=== PATIENT | male | born 1975 | race African-American/Black ===

== ENCOUNTER 2018-03-20 03:12 | Emergency (ER) | payer OTHER ==
--- NOTE | 2018-03-20 03:16 | PDOC ---
History of Present Illness - General Stated Complaint: HEADACHE Time Seen by Provider: 03/20/18 03:16 - History of Present Illness Initial Comments: 03/20/18 03:28 Mr. Luna is a 42 yo male w/ pmh of cluster headaches who presents for evaluation of right sided retro-orbital throbbing headache for the last hour. Patient reports he had taken some advil for the pain however he vomited one time ; pain returned and he called EMS. Patient reports his pain improved when he was put on oxygen by the fire department. Patient reports he still has some pain however it is much improved from earlier today. The patient denies chest pain, shortness of breath, and dizziness. Denies fever , chills, diarrhea and constipation. Denies dysuria, frequency, urgency and hematuria. Past History - Past Medical History Allergies/Adverse Reactions: Allergies Allergy/AdvReac Type Severity Reaction Status Date / Time No Known Allergies Allergy Verified 03/20/18 03:18 Home Medications: Ambulatory Orders Ibuprofen [Motrin -] 600 mg PO TID PRN #21 tablet 02/05/16 Metoclopramide HCl [Reglan] 10 mg PO BID PRN #6 tablet 02/05/16 Ondansetron [Zofran Odt -] 4 mg SL TID PRN #9 od.tablet 03/20/18 - Immunization History Immunization Up to Date: Yes - Suicide/Smoking/Psychosocial Hx Smoking History: Never smoked Have you smoked in the past 12 months: No Hx Alcohol Use: No Drug/Substance Use Hx: No Substance Use Type: None Review of Systems - Review of Systems Comments:: 03/20/18 03:32 GENERAL/CONSTITUTIONAL: No fever or chills. No weakness. HEAD, EYES, EARS, NOSE AND THROAT: No change in vision. No ear pain or discharge. No sore throat. CARDIOVASCULAR: No chest pain or shortness of breath RESPIRATORY: No cough, wheezing, or hemoptysis. GASTROINTESTINAL: +Single episode of vomiting. No diarrhea or constipation. GENITOURINARY: No dysuria, frequency, or change in urination. MUSCULOSKELETAL: No joint or muscle swelling or pain. No neck or back pain. SKIN: No rash NEUROLOGIC: +Headache as described. No vertigo, loss of consciousness, or change in strength/sensation. ENDOCRINE: No increased thirst. No abnormal weight change HEMATOLOGIC/LYMPHATIC: No anemia, easy bleeding, or history of blood clots. ALLERGIC/IMMUNOLOGIC: No hives or skin allergy. *Physical Exam - Physical Exam Comments: 03/20/18 03:32 GENERAL: Awake, alert, and fully oriented, in no acute distress HEAD: No signs of trauma, normocephalic, atraumatic EYES: PERRLA, EOMI, sclera anicteric, conjunctiva clear ENT: Auricles normal inspection, hearing grossly normal, nares patent, oropharynx clear without exudates. Moist mucosa NECK: Normal ROM, supple, no lymphadenopathy, JVD, or masses LUNGS: No distress, speaks full sentences, clear to auscultation bilaterally HEART: Regular rate and rhythm, normal S1 and S2, no murmurs, rubs or gallops, peripheral pulses normal and equal bilaterally. ABDOMEN: Soft, nontender, normoactive bowel sounds. No guarding, no rebound. No masses EXTREMITIES: Normal inspection, Normal range of motion, no edema. No clubbing or cyanosis. NEUROLOGICAL: Cranial nerves II through XII grossly intact. Normal speech, normal gait, no focal sensorimotor deficits SKIN: Warm, Dry, normal turgor, no rashes or lesions noted. ED Treatment Course - LABORATORY CBC & Chemistry Diagram: 03/20/18 04:00 03/20/18 04:00 Medical Decision Making - Medical Decision Making 03/20/18 03:32 Mr. Luna is a 42 yo male w/ pmh as described who presents for evaluation of symptoms c/w cluster headache. Patient improved following previous oxygen administration. Patient placed back on 2L NC and given single reglan dose PO. 03/20/18 03:59 Upon repeat interview patient endorsed taking 12 tylenol pills yesterday. Acetaminophen, salicylate, CBC/CMP taken for further evaluation of patient to ensure no acute process. 03/20/18 04:43 EKG regular rate, regular rhythm, normal access, normal intervals, no ST elevations or depressions. Occasional PVC's noted, otherwise grossly normal EKG. 03/20/18 05:08 Patient reporting relief from symptoms. No concern on labs. Educated patient on proper OTC medication dosing techniques and discussed taking only recommended amounts on packaging. Patient verbalized understanding and will comply going forward. Discharging to home w/ instructions to f/u w/ PCP for further evaluation. *DC/Admit/Observation/Transfer Diagnosis at time of Disposition: Cluster headache Qualifiers: Headache chronicity pattern: unspecified pattern Intractability: not intractable Qualified Code(s): G44.009 - Cluster headache syndrome, unspecified , not intractable - Discharge Dispostion Disposition: HOME - Referrals Referrals: Dylan Cortez MD [Staff Physician] - - Patient Instructions Printed Discharge Instructions: DI for Cluster Headache Additional Instructions: You were evaluated today in the emergency room for your headache. No concerning findings were found at this time. We have provided neurology follow-up information for further evaluation of your migraine headaches as well as sent an anti-nausea medication to your pharmacy. Take all medications as written. Follow-up with Neurology later this week for further evaluation. Return to ER if any return of headache, fever, chills, or other concerning symptoms. - Post Discharge Activity
[2018-03-20 03:20] VITALS: TEMP 97.3; BMI 26.8
[2018-03-20] MEDS ORDERED: METOCLOPRAMIDE HCL 10 MG TABLET (FP) PO ONE ×2 (03:27→03:31)
[2018-03-20] MEDS ORDERED: ONDANSETRON 4 MG TABLET PO ONE (03:27)
[2018-03-20] MEDS ORDERED: ONDANSETRON 8 MG TABLET (FP) PO ONE (03:31)
--- NOTE | 2018-03-20 04:01 | PDOC ---
Attending Attestation - Resident Resident Name: Nain Kay - ED Attending Attestation I have performed the following: I have examined & evaluated the patient, The case was reviewed & discussed with the resident, I agree w/resident's findings & plan, Exceptions are as noted - HPI HPI: 03/20/18 03:59 42M pmh of cluster BARNETT here with 2 days of sharp, R sided barnett a/w ipsilateral lacrimation. Pt was taking ES tylenol on day 1 of symptoms, taking a total of 12 500mg pills in 3 doses over 24h. Pt states symptoms resolved. Today BARNETT recurred, he took advil but vomited after taking the initial dose, symptoms persisted. He called EMS, symptoms improved markedly when he was started on supplemental O2. No other active complaints. - Physicial Exam PE: 03/20/18 04:02 GENERAL: Well-appearing, well-nourished. No apparent distress. HEENT: Normocephalic, atraumatic. PERRL, EOM intact. CARDIOVASCULAR: Normal S1, S2. Regular rate and rhythm. PULMONARY: Clear to auscultation bilaterally. ABDOMEN: Soft, non-distended, non-tender. EXTREMITIES: Normal ROM in all four extremities. No gross deformities. SKIN: Warm, dry. No rash NEUROLOGICAL: No focal neurological deficits. - Medical Decision Making 03/20/18 04:03 Presentation consistent with cluster BARNETT, no eye px or conj injection, no focality Concerning amount of tylenol taken approx 24h ago f/u levels, labs 03/20/18 06:04 normal levels, NAC not indicated, BARNETT symptoms resolved safe for dc
[2018-03-20 04:08] LABS: BASO % 0.9 % (0-2.0); EOS % 1.8 % (0-4.5); HEMATOCRIT 38.3 % (35.4-49); HEMOGLOBIN 13.4 GM/dL (11.7-16.9); LYMPH % 23.8 % (8-40); MCH 29.5 pg (25.7-33.7); MEAN CELL VOLUME 84.4 fl (80-96); MEAN PLT VOLUME 10.2 fl (7.5-11.1); MONO % 6.5 % (3.8-10.2); PLATELET COUNT 195 K/MM3 (134-434); RBC 4.54 M/mm3 (4.00-5.60); RDW 13.1 % (11.9-15.9); WHITE BLOOD COUNT 8.4 K/mm3 (4.0-10.0)
[2018-03-20 04:47] LABS: ALK PHOS 86 U/L (45-117); ANION GAP 7 MMOL/L (8-16); BILIRUBIN,TOTAL 0.4 mg/dL (0.2-1); BLOOD UREA NITROGEN 11 mg/dL (7-18); CALCIUM 8.6 mg/dL (8.5-10.1); CHLORIDE 107 mmol/L (98-107); CO2 26 mmol/L (21-32); CREATININE 1.2 mg/dL (0.55-1.3); GLUCOSE,RANDOM 95 mg/dL (74-106); POTASSIUM 3.2 mmol/L (3.5-5.1); SGOT/AST 30 U/L (15-37); SGPT/ALT 22 U/L (13-61); SODIUM 140 mmol/L (136-145)
[2018-03-20 05:12] VITALS: BP 147/92; PULSE 70
--- NOTE | 2018-03-20 10:27 | EKG ---
Test Reason : Blood Pressure : / mmHG Vent. Rate : 068 BPM Atrial Rate : 068 BPM P-R Int : 164 ms QRS Dur : 088 ms QT Int : 364 ms P-R-T Axes : 069 055 056 degrees QTc Int : 387 ms SINUS RHYTHM WITH OCCASIONAL PREMATURE VENTRICULAR COMPLEXES OTHERWISE NORMAL ECG WHEN COMPARED WITH ECG OF 25-JAN-2016 14:51, NONSPECIFIC T WAVE ABNORMALITY NO LONGER EVIDENT IN INFERIOR LEADS Confirmed by KATEY CALDERON, SHARDA ([id number]) on 03/20/2018 10:27:29 AM Referred By: Confirmed By:SHARDA DEL TORO MD
== END 2018-03-20 05:31 | disposition home or self-care (01) ==
LOC: JER 03:12
DX: G44.009 Cluster headache syndrome, unspecified, not intractable (principal)
CPT/HCPCS: 36415; 80053; 80307; 85025; 93005; 93010; 99282-25

== ENCOUNTER 2019-11-22 14:47 | Emergency (ER) | payer OTHER ==
[2019-11-22 14:57] VITALS: BP 121/59; PULSE 90; TEMP 97; BMI 28.5
[2019-11-22] MEDS ORDERED: IBUPROFEN 600 MG TABLET (FP) PO ONE ×2 (15:11→15:25)
--- NOTE | 2019-11-22 15:23 | PDOC ---
History of Present Illness - General Chief Complaint: Injury Stated Complaint: POSSIBLE ACHILLES TEAR History Source: Patient Exam Limitations: No Limitations - History of Present Illness Initial Comments: 11/22/19 15:12 Patient is a 44 year old male with no pmhx c/o right ankle pain since about 1 hour ago. States he was playing basketball and was going to go up for a ball when he heard a pop in his left ankle posteriorly and he was unable to move. Pain he is described as sharp burning pain in the posterior aspect of the ankle radiating up to the calf 8/10 with ambulation. PMD: Dr. Medina PMHX: none noted PSOCHX: neg etoh, drug, cig PFamHX: Noncontributory ALL: NKDA GENERAL/CONSTITUTIONAL: [No fever or chills. No weakness. No weight change.] HEAD, EYES, EARS, NOSE AND THROAT: [No change in vision. No ear pain or discharge. No sore throat.] CARDIOVASCULAR: [No chest pain or shortness of breath.] RESPIRATORY: [No cough, wheezing, or hemoptysis.] GASTROINTESTINAL: [No nausea, vomiting, diarrhea or constipation. No rectal bleeding.] GENITOURINARY: [No dysuria, frequency, or change in urination.] MUSCULOSKELETAL: [(+) joint or muscle swelling or pain. No neck or back pain.] SKIN AND BREASTS: [No rash or easy bruising.] NEUROLOGIC: [No headache, vertigo, loss of consciousness, or loss of sensation.] PSYCHIATRIC: [No depression or anxiety.] ENDOCRINE: [No increased thirst. No abnormal weight change.] HEMATOLOGIC/LYMPHATIC: [No anemia, easy bleeding, or history of blood clots.] ALLERGIC/IMMUNOLOGIC: [No hives or skin allergy. No latex allergy.] GENERAL: [The patient is awake, alert, and fully oriented, in moderate acute distress.] HEAD: [Normal with no signs of trauma.] EYES: [Pupils equal, round and reactive to light, extraocular movements intact, sclera anicteric, conjunctiva clear.] ENT: [Ears normal, nares patent, oropharynx clear without exudates. Moist mucous membranes.] NECK: [Normal range of motion, supple without lymphadenopathy, JVD, or masses.] LUNGS: [Breath sounds equal, clear to auscultation bilaterally. No wheezes, and no crackles.] HEART: [Regular rate and rhythm, normal S1 and S2 without murmur, rub.] ABDOMEN: [Soft, nontender, normoactive bowel sounds. No guarding, no rebound. No masses.] EXTREMITIES: [(+) Decreased range of motion to dorsiflexion, tenderness over the Achilles tendon, mild swelling noted, (+) Miller's test, no clubbing or cyanosis. No cords, erythema, (+) tenderness.] NEUROLOGICAL: [Cranial nerves II through XII grossly intact. Normal speech, normal gait.] PSYCH: [Normal mood, normal affect.] SKIN: [Warm, Dry, normal turgor, no rashes or lesions noted.] Past History - Medical History Allergies/Adverse Reactions: Allergies Allergy/AdvReac Type Severity Reaction Status Date / Time No Known Allergies Allergy Verified 11/22/19 14:51 Home Medications: Ambulatory Orders Oxycodone HCl/Acetaminophen [Percocet 5/325 -] 1 tab PO Q4H #20 tablet MDD 6 11/22/19 COPD: No - Immunization History Immunization Up to Date: Yes - Psycho-Social/Smoking History Smoking History: Never smoked Have you smoked in the past 12 months: No - Substance Abuse Hx (Audit-C & DAST Scrn) How often the patient has a drink containing alcohol: 2-4 times / month Score: In Men: 4 or > Positive; In Women: 3 or > Positive: 2 Screen Result (Pos requires Nsg. Audit-10AR): Negative *Physical Exam - Vital Signs Last Vital Signs Temp Pulse Resp BP Pulse Ox 97 F L 90 18 121/59 L 99 11/22/19 14:49 11/22/19 14:49 11/22/19 14:49 11/22/19 14:49 11/22/19 14:49 Procedures - Splinting Splint Location: Left: Foot, Ankle Pre-Proc Neuro Vasc Exam: normal Hand-Made Type: orthoglass Splint Type: Yes: Posterior, Short Leg Post-Proc Neuro Vasc Exam: normal Lenny Bandage: 6" ED Treatment Course - LABORATORY CBC & Chemistry Diagram: 11/22/19 04:07 11/22/19 04:07 - RADIOLOGY Radiology Studies Ordered: Category Date Time Status ANKLE-LEFT [RAD] Stat Radiology 11/22/19 15:11 Ordered Medical Decision Making - Medical Decision Making 11/22/19 15:12 Patient is a 44 year old male with no pmhx c/o right ankle pain since about 1 hour ago. States he was playing basketball and was going to go up for a ball when he heard a pop in his left ankle posteriorly and he was unable to move. Pain he is described as sharp burning pain in the posterior aspect of the ankle radiating up to the calf 8/10 with ambulation. Suspicion for ruptured Achilles tendon xray ankle motrin 600mg po. Patient complaint of pain given Percocet 1 tab 11/22/19 16:[address] Molina recommend to get labs, COVID-19 positive test done and will see the patient in his office tomorrow morning to schedule him for surgery on Saturday. Procedure: Posterior splint applied with foot in dorsiflexion. Crutch walking demonstrated with return demonstration.. I discussed the physical exam findings, ancillary test results and final diagnoses with the patient. I answered all of the patient's questions. The patient was satisfied with the care received and felt comfortable with the discharge plan and treatment plan. The Patient agrees to follow up with the primary care physician within 24-72 hours. Discharge - Discharge Information Problems reviewed: Yes Clinical Impression/Diagnosis: Achilles tendon rupture Qualifiers: Encounter type: initial encounter Laterality: left Qualified Code(s): S86.012A - Strain of left Achilles tendon, initial encounter Condition: Stable Disposition: HOME - Additional Discharge Information Prescriptions: Oxycodone HCl/Acetaminophen [Percocet 5/325 -] 1 tab PO Q4H #20 tablet MDD 6 - Follow up/Referral Referrals: Chino Medina MD [Primary Care Provider] - Nicolás Molina MD [Staff Physician] - - Patient Discharge Instructions Patient Printed Discharge Instructions: DI for Achilles Tendon Rupture Additional Instructions: You must follow-up with Dr. Molina in his office on 11/23/2019 at 9 AM for an evaluation and scheduled for surgery. Continue to nonweight weight-bear on the left lower extremities. Wear crutches until seen by orthopedist. - Post Discharge Activity
[2019-11-22 16:31] LABS: BASO % 0.2 % (0-2.0); HEMATOCRIT 42.5 % (35.4-49); LYMPH % 13.5 % (8-40); MCH 28.6 pg (25.7-33.7); MCHC 32.9 g/dl (32.0-35.9); MEAN PLT VOLUME 10.8 fl (7.5-11.1); MONO % 6.2 % (3.8-10.2); NEUT % 79.1 % (42.8-82.8); PLATELET COUNT 233 K/MM3 (134-434); RBC 4.88 M/mm3 (4.00-5.60); RDW 13.2 % (11.9-15.9); WHITE BLOOD COUNT 12.3 K/mm3 (4.0-10.0)
[2019-11-22 16:37] LABS: INR 0.97 (0.83-1.09); PROTHROMBIN TIME (PATIENT) 11.5 SEC (9.7-13.0)
[2019-11-22 16:39] LABS: ACTIVATED PTT 27.9 SECONDS (25.2-36.5)
[2019-11-22 17:19] LABS: ALBUMIN 4.7 g/dl (3.4-5.0); BILIRUBIN,TOTAL 0.5 mg/dL (0.2-1); BLOOD UREA NITROGEN 12.9 mg/dL (7-18); CALCIUM 9.6 mg/dL (8.5-10.1); CREATININE 1.7 mg/dL (0.55-1.3); POTASSIUM 4.5 mmol/L (3.5-5.1); TOT PROT 8.3 g/dl (6.4-8.2)
== END 2019-11-22 16:26 | disposition home or self-care (01) ==
LOC: JERFT 14:47
PROC: 2W3QX1Z Immobilization of Right Lower Leg using Splint (ICD-10-PCS; principal; 2019-11-22)
DX: S86.012A Strain of left Achilles tendon, initial encounter (principal); Y99.8 Other external cause status
CPT/HCPCS: 36415; 73610-TC-LT-FY; 80053; 85025; 85610; 85730; 99284-25; U0003

== ENCOUNTER 2022-04-03 08:30 | Emergency (ER) | payer OTHER ==
[2022-04-03 08:44] VITALS: BP 147/87; PULSE 95; RESP 18; TEMP 98.8; BMI 25.7
[2022-04-03] MEDS ORDERED: KETOROLAC TROMETHAMINE 30 MG/1 ML VIAL IM ONE (09:02)
== END 2022-04-03 13:05 | disposition home or self-care (01) ==
LOC: JERFT 08:30
PROC: 3E0233Z Introduction of Anti-inflammatory into Muscle, Percutaneous Approach (ICD-10-PCS; principal; 2022-04-03)
DX: M25.561 Pain in right knee (principal); M25.562 Pain in left knee; W31.82XA Contact with other commercial machinery, initial encounter; W01.0XXA Fall on same level from slipping, tripping and stumbling without subsequent striking against object, initial encounter
CPT/HCPCS: 73562-TC-LT-FY; 73562-TC-RT-FY; 73610-TC-LT-FY; 73610-TC-RT-FY; 73630-TC-LT; 73630-TC-RT-FY; 99285-25

== ENCOUNTER 2022-08-24 05:19 | Emergency (ER) | payer OTHER ==
[2022-08-24 05:54] VITALS: RESP 20; TEMP 98.9; BMI 27.1
[2022-08-24] MEDS ORDERED: SODIUM CHLORIDE 0.9% 500 ML INFUS.BAG IV ONE (06:18)
[2022-08-24] MEDS ORDERED: METOCLOPRAMIDE HCL INJECTION 10 MG/2 ML VIAL IVPUSH ONE (06:18)
[2022-08-24] MEDS ORDERED: KETOROLAC TROMETHAMINE 15 MG/ML VIAL IVPUSH ONE (06:18)
[2022-08-24] MEDS ORDERED: ACETAMINOPHEN 1000 MG/100 ML BAG IVPB ONE (06:27)
[2022-08-24] MEDS ORDERED: METOCLOPRAMIDE HCL INJECTION 10 MG/2 ML VIAL ONE (06:32)
[2022-08-24] MEDS ORDERED: KETOROLAC TROMETHAMINE 15 MG/ML VIAL ONE (06:32)
[2022-08-24] MEDS ORDERED: ACETAMINOPHEN INJECTION 100 ML IVPB ONE (06:32)
[2022-08-24 07:50] VITALS: BP 135/90; PULSE 62
== END 2022-08-24 08:00 | disposition home or self-care (01) ==
LOC: JER 05:19
PROC: 3E033NZ Introduction of Analgesics, Hypnotics, Sedatives into Peripheral Vein, Percutaneous Approach (ICD-10-PCS; principal; 2022-08-24)
PROC: 3E033GC Introduction of Other Therapeutic Substance into Peripheral Vein, Percutaneous Approach (ICD-10-PCS; 2022-08-24)
PROC: 3E033GC Introduction of Other Therapeutic Substance into Peripheral Vein, Percutaneous Approach (ICD-10-PCS; 2022-08-24)
DX: R51.9 Headache, unspecified (principal); R11.2 Nausea with vomiting, unspecified; H53.71 Glare sensitivity
CPT/HCPCS: 99284-25

== ENCOUNTER 2022-10-12 19:17 | Emergency (ER) | payer OTHER ==
[2022-10-12 19:25] VITALS: BP 147/100; PULSE 82; RESP 18; TEMP 98.1; BMI 27.8
== END 2022-10-12 21:14 | disposition home or self-care (01) ==
LOC: JERFT 19:17
DX: M25.561 Pain in right knee (principal); R07.9 Chest pain, unspecified; W24.0XXA Contact with lifting devices, not elsewhere classified, initial encounter; Y99.0 Civilian activity done for income or pay
CPT/HCPCS: 71046-TC-FY; 73562-TC-RT-FY; 93005; 93010; 99284-25